=== PATIENT | male | born 1965 | race Caucasian/White ===

== ENCOUNTER 2022-12-17 09:57 | Observation (INO) ==
--- NOTE | 2022-11-24 13:36 | PAT Medication Instructions ---
Medication Instructions Date of Service November 24, 2022 Home Medications multivitamin 1 tab PO HS acetaminophen 325 mg tablet (Tylenol) 325 mg PO QID PRN atorvastatin 20 mg tablet 20 mg PO HS lisinopril 20 mg tablet 20 mg PO HS metformin 500 mg tablet 500 mg PO HS Take morning of surgery With a small sip of water, OTHERWISE NOTHING TO EAT OR DRINK AFTER MIDNIGHT: acetaminophen 325 mg tablet (Tylenol) 325 mg PO QID PRN(if needed) Take evening before surgery multivitamin 1 tab PO HS acetaminophen 325 mg tablet (Tylenol) 325 mg PO QID PRN(if needed) atorvastatin 20 mg tablet 20 mg PO HS lisinopril 20 mg tablet 20 mg PO HS metformin 500 mg tablet 500 mg PO HS Other Notes If you have any questions please call us at [phone] or [phone] or [phone] or [phone]
--- NOTE | 2022-11-30 10:32 | Anesthesiology Consultation ---
Date of Service November 30, 2022 Assessment & Plan (1) Encounter for pre-operative examination: - COVID screening: Per assessment on 11/30: No known COVID-19 positive contacts. Travel screen negative. Patient vaccinated. Pt reports one day of dry cough. Mildly tachycardic (high 90s to low 100s) at PAT exam and temp 100.7. Covid test done 11/30 at [facility] was positive. Patient made aware- will follow guidelines. Patient advised to call back if symptoms not resolved prior to surgery. As long as patient does not have Covid symptoms resolved by 12/17/22 DOS, pt can proceed as scheduled without additional preop Covid testing or additional Covid contact precautions per protocol. - Outpatient joint assessment: Pt currently scheduled for inpatient pathway. If surgeon requests review for outpatient joint pathway, patient is an acceptable candidate for outpatient joint program from anesthesia standpoint pending surgeon's office assessment that patient is motivated, has good support and completes [facility] Day Joint Program preop requirements. - S/P Right [place] arthroscopy (06/03/22): [place]5 [place] [facility] [place] DOS Chart Review Chart Review: Acceptable Risk for Surgery (pending evaluation AM DOS) and Patient seen in Pre Admission Testing Teaching & Discussion Pre-Anesthesia Teaching/Discussion Notes: Instructed NPO after midnight before surgery,except medications with 15 cc of water. Medication instructions provided according to the PAT guidelines. History Surgery Operation Date: 12/17/22 10:35 Proposed Procedures p Right Reverse Total Shoulder Arthroplasty - Ramsey Seo MD Height/Weight Height: 6 ft Weight: 112.1 kg Allergies Allergy/AdvReac Type Severity Reaction Status Date / Time ibuprofen AdvReac severe Verified 11/24/22 09:50 headache with vision changes Medications Home Medications Medication Instructions Recorded Confirmed Last Taken multivitamin 1 tab PO HS 10/27/21 11/24/22 06/01/22 acetaminophen 325 mg tablet 325 mg PO QID PRN Pain 11/24/22 11/24/22 Unknown (Tylenol) atorvastatin 20 mg tablet 20 mg PO HS 11/24/22 11/24/22 Unknown lisinopril 20 mg tablet 20 mg PO HS 11/24/22 11/24/22 Unknown metformin 500 mg tablet 500 mg PO HS 11/24/22 11/24/22 Unknown Past Medical History Medical History Diabetes mellitus, type 2 NIDDM (recent diagnosis) GERD (gastroesophageal reflux disease) Diet controlled History of contracture of joint Right shoulder History of COVID-19 09/2020- SOB, cough, fever, body aches, fatigue > resolved Hyperlipidemia Hypertension Obesity Osteoarthritis Exercise / Class Metabolic Activity II 4-5 Yardwork/Stairs/Walk up hill Past Family History Family History Other No family history of adverse response to anesthesia Past Surgical History Surgical History H/O arthroscopy of shoulder Right shoulder arthroscopy (06/03/22): [place]#5 [place] [facility] [place] of anesthesia reaction Awareness with right foot surgery History of arthroscopy of left knee History of arthroscopy of right knee History of foot surgery Right History of shoulder surgery Right History of skin graft Right foot History of tonsillectomy History of wisdom tooth extraction Past Anesthesia History No Hx of Anesthesia Complications and No Family Hx of Anesthesia Complications History of PONV No Hx of PONV and No Hx of Motion Sickness Social History Smoking Status: Former smoker tobacco type: cigarettes Do You Dip or Chew Tobacco: Yes (Occasional- advised none DOS) Smoking End Date: Quit 5-6 yrs ago Hx Alcohol Use: Yes (hard lemondae) Alcohol type: other alcohol intake frequency: holidays/special occasions only Hx Substance Use: No substance use type: does not use Review of Systems Patient denies chest pain, shortness of breath, dyspnea on exertion, fever, chills, cough, wheezing, palpitations. Physical Exam Vital Signs VITALS BP 137/73 P 96 TEMP 100.7 SP02 97%RA RESP 16 PHYSICAL Full cervical extension range of motion. Full TMJ range of motion. TMD 4 finger breaths Mallampati Score 2 Dentition: missing molars Lungs: clear throughout to auscultation Cardiac: regular rate and rhythm, no murmurs noted Spine: normal Carotid arteries: negative bruit Extremities: no edema Lab Results Anesthesia Preop Results Results Anesthesia Widget: WBC 8.76 K/ul (4.8-10.8) 11/30/22 Hgb 15.3 g/dl (14.0-18.0) 11/30/22 Hct 43.7 % (40.1-51.0) 11/30/22 Plt 189 K/uL (130-400) 11/30/22 PT 10.3 Seconds (9.0-12.0) 11/30/22 PTT 27.6 Seconds (21.0-31.0) 11/30/22 INR 1.0 (0.9-1.1) 11/30/22 Blood Type A Positive 11/30/22 Antibody Screen NEGATIVE 11/30/22 Testing Laboratory Results 11/18/22 SODIUM 140 POTASSIUM 4.0 CHLORIDE 104 CO2 26 BUN 13 CREATININE 0.9 GLUCOSE 124 HGBA1C 6.9% Electrocardiogram Date: 11/30/22 NSR at 93bpm. RBBB. Chest X-Ray Date: 11/30/22 FINDINGS: No lines and tubes are seen. The cardiomediastinal silhouette is normal. The lungs are clear. No evidence of pleural effusion or pneumothorax. IMPRESSION: No acute chest disease. COVID-19 Risk Screen Screening Information COVID-19 Screen Date: 11/30/22 Exposure 21 Days Family/Household +COVID Last 21 Days: No Exposure 10 Days Any COVID Exposure Last 10 Days: No Symptoms Last 10 Days Experienced COVID Sx Last 10 Days: Yes + COVID 0-90 Days COVID + in Last 0-90 Days: No
[~2022-12-17 09:57] MED LIST: BUPIVACAINE 0.5 % 5 MG/1 ML PF 10ML VIAL ONE; LR 15ML/HR IV SCH; LR 60ML/HR IV SCH; ceFAZolin 2000MG 2,000 MG/15 ML SYR IV SCH
[2022-12-17] MEDS ORDERED: MIDAZOLAM HCL 1 MG/ML 2ML VIAL ONE (10:28)
[2022-12-17] MEDS ORDERED: fentaNYL citrate 100 MCG/2 ML VIAL ONE ×2 (10:28→15:41)
[2022-12-17] MEDS ORDERED: KETAMINE 50 MG/5 ML SYRINGE ONE (10:28)
[2022-12-17] MEDS ORDERED: ONDANSETRON INJ 2 MG/ML 2 ML VIAL ONE (10:29)
[2022-12-17] MEDS ORDERED: DEXAMETHASONE SOD INJ 4 MG/ML VIAL ONE (10:29)
[2022-12-17] MEDS ORDERED: ROCURONIUM BROMIDE 10 MG/ML 5 ML VIAL IV ONE ×2 (10:29→14:35)
[2022-12-17] MEDS ORDERED: KETOROLAC 30 MG/ML VIAL ONE (10:29)
[2022-12-17] MEDS ORDERED: LIDOCAINE 2% MPF LOCAL 5 ML VIAL INFIL ONE (10:29)
[2022-12-17] MEDS ORDERED: PHENYLEPHRINE HCL 10 MG/ML VIAL ONE (10:29)
[2022-12-17] MEDS ORDERED: PROPOFOL IV EMULSION 10 MG/ML 20 ML VIAL IV ONE (10:29)
[2022-12-17] MEDS ORDERED: GLYCOPYRROLATE 0.2 MG/ML VIAL ONE (10:29)
[2022-12-17] MEDS ORDERED: LABETALOL HCL IV 5 MG/ML 20ML IV PRN (12:26)
[2022-12-17] MEDS ORDERED: PROMETHAZINE HCL 6.25 MG in SODIUM CHLORIDE 0.9% 50 ML IV PRN (12:26)
[2022-12-17] MEDS ORDERED: fentaNYL citrate 100 MCG/2 ML VIAL IV PRN (12:26)
[2022-12-17] MEDS ORDERED: ONDANSETRON INJ 2 MG/ML 2 ML VIAL IV PRN ×2 (12:26→18:33)
[2022-12-17] MEDS ORDERED: ATROPINE SULFATE 0.1 MG/ML 10ML SYR IV PRN (12:26)
--- NOTE | 2022-12-17 12:43 | History & Physical Bridge Note ---
Date of Service December 17, 2022 History & Physical Bridge Note I have examined the patient, reviewed the History & Physical and in the interval since the performance of the History & Physical I have noted the following changes of clinical significance: no changes noted
[2022-12-17] MEDS ORDERED: TRANEXAMIC ACID / 0.7% NACL 1000MG/100ML BAG IV ONE (13:56)
[2022-12-17] MEDS ORDERED: ePHEDrine sulfate 50 MG/ML SYR ONE (14:36)
--- NOTE | 2022-12-17 16:18 | Post Operative Brief Note ---
PG Immediate Post Op with CF Date of Surgery December 17, 2022 Pre & Post Diagnosis Operation Date: 12/17/22 11:55 Pre-Op Diagnosis: Dysfunction of Right Rotator Cuff Post-Op Diagnosis: Dysfunction of Right Rotator Cuff I identified the patient and participated in the time-out.: Yes Procedure Operation Date: 12/17/22 11:55 Actual Procedures p Right Reverse Total Shoulder Arthroplasty(Right) - Ramsey Seo MD Surgeon Ramsey Seo MD Business Advisor Simone Ramirez PA-C Estimated Blood Loss 100 Findings Consistent with Post-Op Diagnosis Specimens Specimen Description: A. Right Humeral Head Anesthesia Type General Regional
--- NOTE | 2022-12-17 16:18 | Operative Report ---
PG Post Operative Report Pre & Post Diagnosis Operation Date: 12/17/22 11:55 Pre-Op Diagnosis: Dysfunction of Right Rotator Cuff, failed rotator cuff repair, rotator cuff arthropathy Post-Op Diagnosis: Dysfunction of Right Rotator Cuff, failed rotator cuff repair, rotator cuff arthropathy I identified the patient and participated in the time-out.: Yes Procedure Operation Date: 12/17/22 11:55 Actual Procedures p Right Reverse Total Shoulder Arthroplasty, revision right biceps tenodesis (Right) - Ramsey Seo MD Surgeon Ramsey Seo MD Senior Ui Developer Simone Ramirez PA-C Estimated Blood Loss 100 Findings See Below [employer] comprehensive reverse shoulder arthroplasty was performed: Stem13 mm micro, baseplatemedium augmented superior, glenosphere[36 mm standard], humeral tray [36 mm standard +0 offset], poly [36 mm standard], central screw 6.5 mm x [35] mm, all locking peripheral screws 4.75 x [15]mm, 4.75 x 20 mm, 4.75 x 25 mm, and 4.75 x 30 mm EXAMINATION UNDER ANESTHESIA: Preoperative exam under anesthesia revealed the following: [120] degrees of forward flexion, 45 degrees external rotation at the side, [60] degrees of abduction which released with gentle manipulation to approximately 90, 40 degrees of external rotation and 30 degrees of internal rotation with the arm abducted. Postoperatively, range of motion parameters after implantation of prosthesis revealed a stable prosthesis with range of motion parameters as follows: [130] of forward flexion, [60] of external rotation at the side, 120 of abduction, [90] of external rotation with the arm abducted, 30 of internal rotation with the arm abducted. The patient's safe range of motion included the ability to get to the back of her head. Internal rotation to the belly without significant tension. Specimens Humeral head for pathology Drains none Anesthesia Type General Regional Complications none Disposition Accompanied Patient To Recovery: No Disposition: Recovery Room Indications 57-year-old male who underwent care for right rotator cuff traumatic tear and biceps tendinopathy. Unfortunately he had significant arthrofibrosis and failure to return to any meaningful rotator cuff function. He underwent revision arthroscopy for lysis of adhesions and a revision rotator cuff repair. Once again his postop course was complicated by rotator cuff dysfunction he could not forward elevate or abduct without significant pain. He was unable to return to work. He underwent prolonged nonoperative management for this problem, but he remained with rotator cuff dysfunction and pain. Secondary advanced imaging showed rotator cuff tendinopathy was progressive and he was advancing to get posterior superior wear pattern from rotator cuff dysfunction. He had daily pain and pain that interfered with sleep. After several prolonged discussions, we did discuss reverse shoulder arthroplasty to return to normal shoulder function. We did get a secondary opinion as well. After the authorization, he returned to her preoperative appointment where we decided to proceed with a right reverse total shoulder arthroplasty to restore shoulder function. I reviewed the risks and benefits and alternatives, as well as outcome expectations and required rehabilitation, in detail as outlined in the preoperative note. Informed consent was documented in the clinic, and confirmed today. Description of Procedure The patient was identified in the preoperative holding area. The operative ext remity was marked. Regional block was administered by Anesthesia. The patient was then brought to the operating room and placed supine. Preliminary time-out procedure was performed. All were in agreement. General endotracheal anesthesia was induced without any issues. The patient was sat up in around 40-45 degrees of inclination in the beachchair position. Exam under anesthesia was performed confirming the above findings. Preoperative antibiotics were administered. Sequential compressive devices were placed on her bilateral lower extremities for DVT prophylaxis. Bony prominences were inspected, well-padded and free of any evidence for peripheral nerve compression. The operative upper extremity was then prepped and draped in a normal standard fashion, with use of the Arthrex Trimano arm positioner. Prior to incision, a second time-out procedure was performed confirming the patient, site, laterality and the procedure. All were in agreement. 1. Right shoulder open reverse total shoulder replacement with augmented glenoid baseplate with patient specific guide: A deltopectoral incision was utilized. Incision was carried out sharply and with electrocautery through the skin and subcutaneous tissues. The deltopectoral interval was developed. The cephalic vein was taken laterally. Subdeltoid space was developed bluntly. A deltoid brown retractor was placed to retract the deltoid laterally and superiorly. 1 cm of the superior border of the pectoralis major tendon insertion site was released in standard fashion to improve exposure. Clavipectoral fascia was removed with electrocautery. Extensive subacromial bursitis was encountered and this was completely removed with a Bovie. The lateral aspect of the conjoined tendon was then followed to its insertion site on the coracoid. The conjoined tendon was retracted medially. The biceps tendon was identified, enlarged consistent with tendinopathy. It was released from the sheath using a Bovie and followed up into the rotator interval. A tenodesis was performed to the pectoralis major tendon as will be discussed in further detail below. A sharp Hohmann retractor was then placed into the interval and into the joint. Subscapularis tendon was still present and attached on the lesser tuberosity. The articular surface of the humeral head could be appreciated. The subscapularis tendon was then tagged with two #5 Ti-Cron sutures to gain control. The capsule with the subscapularis tendon was then released up the inferior humeral neck as one layer. The humeral head dislocated with successive extension and external rotation. [Visualization of the humeral head revealed mild osteoarthritis and wear. The had what appeared to be a high-grade partial-thickness tear with extensive tendinosis. The rotator cuff repair sutures were intact, but the tissue was extensively thin. The supraspinatus was released from the anterior insertion and allowed to peelback to aid exposure of the glenoid. The top of the humeral head was identified. A starting awl was used sound the humeral canal. The bone quality was good. We opted to set the retroversion of the humeral cut at around 30 degrees of retroversion [place] retroversion. The humeral head resection was then made in parallel fashion to the guide. Sequential reaming was carried out up to a size 14 as the maximal stem size. Successive trial broaches were then broached up to a size 14, which gave us excellent press-fit. The trial stem was left in place. We then proceeded over to glenoid. An anterior glenoid neck retractor was p laced. The MGHL and SGHL were released off of the muscular portion of the subscapularis being mindful of palpating and identifying the axillary nerve to make sure it was free of injury during releases. Next, the interval between the IGHL and the muscular portions of the subscapularis was identified. My finger was on the axillary nerve to protect it during releases. The IGHL was then released up to around the 7 o'clock position. A blunt retractor was then placed to retract the humerus posteriorly. A sharp Hohmann retractor was placed at the 12 o'clock position. The glenoid deformity was evaluated with assistance with the bone model. Extraneous capsulolabral tissue was dissected to reveal the bone anatomy. This confirmed our decision to proceed with preoperative virtual planning. The arm was placed around 30 degrees of flexion, 90 degrees of external rotation and 30 degrees of abduction to distract the humerus posteriorly. Labrum was circumferentially removed including the biceps tendon stump with a Bovie. A patient specific guide was used to place an initial guide pin, followed by the more superior pin. The patient specific guide was then removed. The custom reamer guide was placed on the superior pin and the reamer was brought down the central pin. Reaming was conducted based on the guide. Irrigation was used and we confirmed adequate reaming. The base protector was then fastened with a screw to protect the surface from the augment reamer. The augment reamer sufficiently removed the cartilage surface. Copious irrigation was performed to irrigate out the joint. A 25 mm small augment baseplate, with wedge placed superior and a 35 mm threaded screw was then placed. For peripheral locking screws were placed. The final construct appeared to be extremely strong as the entire glenoid and scapula moved together as one unit confirming excellent fixation of the baseplate. Next, a 36 mm inferior offset set at position B glenosphere was chosen given our preop plan and position of the central screw for bone purchase. A trial glenosphere was placed. Humerus was then brought back into view with external rotation, deltoid brown retractor and multiple blunt Homans. A trial tray was then placed that would best accommodate the anatomy. The shoulder was extremely difficult to reduce. It was excessively tight, so I opted to take a deeper humeral cut. The size 14 trial stem was removed. A size 13 was advanced. The rongeur was used to remove the anterior rim of bone. The calcar planer was placed. Unfortunately this did not get much deeper of the cut. The trial stem was pulled. Extramedullary guide was placed against the anterior aspect of the humerus. A 3 mm plantar cut was performed using the guide. This allowed a deeper cut into the humerus, which provided access to some more of the swivel lock suture anchors that had to be debrided. The size 13 stem was placed. Significant fit and capture. A calcar planer was used once again. The trial tray was placed on the arm was reduced with appropriate tension. The arm was taken out of the galvin, taken through a physiologic range of motion. No evidence for impingement. No evidence for kick off. No shuck. Thus, the trials would be a most appropriate for stability. Next, the trial humeral component was removed. The final stem prosthesis was then brought onto the field. Final tray insert as well as the poly components were opened. Using the trial component, the final humeral component with the tray and poly were made on the back table, matching the trial implant. Humeral canal was copiously irrigated. Two 2.0 mm drill holes were then placed in the bicipital groove just lateral to the lesser tuberosity. 3 Arthrex #5 FiberWire sutures were placed through these holes and clamped aside for later subscapularis repair. The final glenosphere was impacted onto the Oneil taper at the size B offset. The baseplate was exposed once again. The glenosphere was then seated into the baseplate and impacted onto the oneil taper. A rios was used to test fixation, before resetting with additional malletting. The joint was then copiously irrigated. The humerus was exposed once again. The final humeral component was then brought back on to the field and seated firmly into the humerus. Excellent press-fit was achieved. Thus, this completed the humeral component implantation. With the final components in place, humeral component was then reduced onto the glenosphere and final postoperative range of motion assessment was performed. It had appropriate tension. Stability confirmed. The subscapularis was then repaired to the humerus using a Harjinder-Stanley configuration. This completed the open reverse total shoulder replacement. 2. Open biceps tenodesis: As dictated above, enlargement of the biceps tendon was noted consistent with tendinopathy. The previous arthroscopic biceps tenodesis was taken down during the approach, so a revision tenodesis was necessary. The tendon was released from the bicipital sheath using a Bovie and then tenodesed to the pectoralis major tendon using a #2 Arthrex FiberWire suture in [id number] fashion. The tendon was then followed up as proximal as could be visualized and then released from its previous tenodesis site at the top of the biceps groove. This completed the open biceps tenodesis. The wound was copiously irrigated. The deltopectoral incision was closed with continuous # #1 Vicryl suture. Subcutaneous tissues were closed with 2-0 Vicryl suture in buried interrupted fashion and skin closed with nile. The wound was dressed with sterile Xeroform, plain gauze, ABD and contained by Tegaderms. The patient was placed in a standard sling and turned over to the anesthesia team. The patient tolerated procedure well, was extubated in the operating without complication, and transferred to the PACU in stable condition. DISPOSITION: The patient will remain in sling for a total of 6 weeks. Hand, wrist, and elbow range of motion exercises may be initiated. After 6 weeks, the sling will be discontinued. Formal therapy will be initiated starting with gentle passive range of motion and active range of motion. No strengthening will be permitted before 12 weeks. When strengthening is allowed, only gentle strengthening will be allowed. Physician assistant corporation counsel attestation: Simone Ramirez PA-C was present and scrubbed for the duration of the case. He was essential to prepping/draping, patient positioning, retraction, and assistance with wound closure. I attest to the content of the Intraoperative Record and any orders documented therein. Any exceptions are noted below.
--- NOTE | 2022-12-17 17:05 | XRay Report ---
XR shoulder RT min 2V routine CLINICAL HISTORY: Post shoulder surgery COMPARISON STUDY: None. FINDINGS: Status post reverse right total shoulder arthroplasty. The hardware appears intact. No frac ture or dislocation. Skin nile are in place. IMPRESSION: Status post reverse right total shoulder arthroplasty. ACT 112: Negative or not required by law. Electronically signed by: Ayan Kendrick M.D. 12/17/2022 5:03 PM
--- NOTE | 2022-12-17 17:43 | Anesthesiology Progress Note ---
Date of Service December 17, 2022 Anesthesia Post Procedure Vital Signs Vital Signs: Temp Pulse Pulse Resp BP BP Pulse Ox 12/17/22 17:35 87 20 114/69 94 12/17/22 17:20 36.3 C L 86 20 109/72 93 12/17/22 17:10 87 20 107/65 93 12/17/22 17:00 84 18 106/61 92 12/17/22 16:50 88 18 99/67 L 92 12/17/22 16:40 89 20 106/63 94 12/17/22 16:33 37.2 C 90 14 111/66 94 12/17/22 10:29 36.9 C 83 20 155/89 H 96 O2 Del Method O2 Flow Rate 12/17/22 17:35 Nasal Cannula 2 12/17/22 17:20 Nasal Cannula 2 12/17/22 17:10 Nasal Cannula 2 12/17/22 17:00 Nasal Cannula 2 12/17/22 16:50 Nasal Cannula 2 12/17/22 16:40 Oxymask 6 12/17/22 16:33 Oxymask 6 12/17/22 10:29 Room Air Pain Intensity Right Shoulder: Pain Intensity: 5 Transfer of Care Handoff Completed per policy Notes Mental Status: alert / awake / arousable Patient Amnestic to Procedure: Yes Nausea / Vomiting: adequately controlled Pain: adequately controlled Airway Patency, RR, SpO2: stable & adequate BP & HR: stable & adequate Hydration State: stable & adequate Anesthetic Complications: no major complications apparent
[2022-12-17] MEDS ORDERED: oxyCODONE HCL IR 5 MG TAB (IMMEDIATE RELEASE) PO PRN (18:33)
[2022-12-17] MEDS ORDERED: bisacodyL 10 MG SUPP PR PRN (18:33)
[2022-12-17] MEDS ORDERED: MAGNESIUM HYDROXIDE SUSP 30 ML UDC PO PRN (18:33)
[2022-12-17] MEDS ORDERED: METOCLOPRAMIDE HCL INJ 5 MG/ML 2 ML VIAL IV PRN (18:33)
[2022-12-17] MEDS ORDERED: NALOXONE HCL 0.4 MG/1 ML VIAL/CARP IV PRN (18:33)
[2022-12-17] MEDS: SODIUM CHLORIDE 0.9% 1000ML 1,000 ML IV SCH (18:39)
[2022-12-17] MEDS ORDERED: lisinopril 20 MG TAB PO SCH (21:00)
[2022-12-17] MEDS ORDERED: NON-FORMULARY MEDICATION (Multivitamin Tablet) PO SCH (21:00)
[2022-12-17] MEDS ORDERED: ATORVASTATIN 20 MG TAB PO SCH (21:00)
[2022-12-17] MEDS ORDERED: SENNA 8.6 MG TAB PO SCH (21:00)
[2022-12-17] MEDS: ACETAMINOPHEN 500 MG TAB PO SCH (21:35)
[2022-12-17] MEDS: ceFAZolin 2000MG 2,000 MG/15 ML SYR IV SCH (21:35)
[2022-12-17] MEDS: DOCUSATE SODIUM 100 MG CAP PO SCH (21:36)
[2022-12-18] MEDS: SODIUM CHLORIDE 0.9% 1000ML 1,000 ML IV SCH (04:37)
[2022-12-18] MEDS: ceFAZolin 2000MG 2,000 MG/15 ML SYR IV SCH (05:45)
[2022-12-18] MEDS: ACETAMINOPHEN 500 MG TAB PO SCH (05:45)
[2022-12-18 07:18] LABS: Basophils # (auto) 0.02 K/uL (0-0.2); Basophils % (auto) 0.1 %; Eosinophils # (auto) 0.02 K/uL (0-0.50); Eosinophils % (auto) 0.1 %; Hematocrit (blood only) 37.7 % (42.0-52.0); Immature Granulocytes # (auto) 0.08 K/uL (0.01-0.20); Immature Granulocytes % (auto) 0.6 %; Lymphocytes # (auto) 1.76 K/uL (1.2-3.4); Lymphocytes % (auto) 12.2 %; Mean Corpuscular Hemoglobin 30.4 pg (25.0-34.0); Mean Corpuscular Hgb Conc 34.5 g/dL (32.0-36.0); Mean Corpuscular Volume 88.1 fL (80.0-100.0); Mean Platelet Volume 9.6 fL (9.4-12.4); Monocytes # (auto) 1.74 K/uL (0.11-0.59); Monocytes % (auto) 12.1 %; Neutrophils # (auto) 10.79 K/uL (1.40-6.50); Neutrophils % (auto) 74.9 %; Platelet Count 226 K/uL (130-400); RDW Standard Deviation 38.5 fL (36.4-46.3); Red Blood Count 4.28 M/uL (4.70-6.10); White Blood Count 14.41 K/ul (4.8-10.8)
[2022-12-18 07:32] LABS: Potassium 4.1 mmol/L (3.5-5.1)
[2022-12-18 07:37] LABS: Est GFR (African American) 109.2 ml/min; Est GFR (Non-African American) 94.3 ml/min
[2022-12-18] MEDS: DOCUSATE SODIUM 100 MG CAP PO SCH (08:29)
[2022-12-18] MEDS ORDERED: MULTIVITAMIN TAB PO SCH (09:00)
--- NOTE | 2022-12-18 09:00 | Orthopedic Progress Note ---
Date of Service December 18, 2022 Assessment & Plan (1) Dysfunction of right rotator cuff: (2) Contracture, right shoulder: (3) History of reverse total replacement of right shoulder joint: Plan Make an uncomplicated progress on postop day 1. -Evaluation by PT and OT today -Plan for discharge today -We will follow-up in 2 weeks for wound check and repeat x-rays. Subjective Pain tolerable but the block still in effect. No issues with diet. Wants to go home today. Review of Systems All systems reviewed & are unremarkable except as noted in HPI & below. Physical Exam Right shoulder: The dressing is clean and dry. Diminished but intact light touch sensation in the axillary nerve distribution. Can fire his deltoid. Acti ve motion to his fingers. Sensation reduced but present. Constitutional WD/WN, vitals as above no acute distress and not intoxicated appearing Respiratory normal respiratory effort; no labored breathing Cardiovascular Extremities: normal capillary refill Results & Data Results & Data Laboratory Results . Diagnostic Findings Radiographs show no implant complications PG Care Time/CCT Total # of Minutes Spent Total Time Spent with Patient: Total time spent is greater than 50% in coordination of care (as documented) at patient's floor/unit and/or counseling patient: Coding Level of Care Code 53522 Post Operative Follow-Up Diagnoses Dysfunction of right rotator cuff M67.911 Contracture, right shoulder M24.511 History of reverse total replacement of right shoulder joint Z98.890
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
== END 2022-12-18 11:34 | disposition home or self-care (01) ==
LOC: ASU 09:57 → 3E 09:57